=== PATIENT | male | born 1970 | race Caucasian/White ===

== ENCOUNTER 2018-09-27 21:39 | Emergency (ER) | payer OTHER ==
[~2018-09-27] VITALS: Ht 182.9 cm; Wt 95.3 kg
[~2018-09-27 21:39] MED LIST: TRAMADOL 50 MG50 MG PO
[2018-09-27] MEDS ORDERED: VIBRAMYCIN 100100 MG PO (23:26)
[2018-09-27 23:41] VITALS: BP 131/88
== END 2018-09-27 23:41 | disposition home or self-care (01) ==
LOC: ER 21:39
DX: S30.861A Insect bite (nonvenomous) of abdominal wall, initial encounter (principal); L03.311 Cellulitis of abdominal wall; F17.200 Nicotine dependence, unspecified, uncomplicated; Z90.49 Acquired absence of other specified parts of digestive tract; Z88.0 Allergy status to penicillin; W57.XXXA Bitten or stung by nonvenomous insect and other nonvenomous arthropods, initial encounter; Y93.89 Activity, other specified; Y92.89 Other specified places as the place of occurrence of the external cause; Y99.8 Other external cause status